=== PATIENT | female | born 1965 | race Two or more races ===

== ENCOUNTER 2017-07-08 17:13 | Emergency (ER) | payer OTHER ==
[~2017-07-08] VITALS: Ht 165.1 cm; Wt 90.7 kg
[~2017-07-08 17:13] MED LIST: FIORICET 50-321 EACH PO
== END 2017-07-08 22:10 | disposition home or self-care (01) ==
LOC: ER 17:13
DX: K57.32 Diverticulitis of large intestine without perforation or abscess without bleeding (principal); R10.32 Left lower quadrant pain

== ENCOUNTER 2017-07-23 16:12 | Emergency (ER) | payer OTHER ==
[~2017-07-23] VITALS: Ht 162.6 cm; Wt 90.7 kg
[2017-07-23] MEDS ORDERED: DICLOFENAC POTA50 MG PO (17:58)
[2017-07-23] MEDS ORDERED: MEDROLPACK PO (17:58)
== END 2017-07-23 21:01 | disposition home or self-care (01) ==
LOC: ER 16:12
DX: M62.838 Other muscle spasm (principal)

== ENCOUNTER 2017-09-20 12:51 | Outpatient (CLI) | payer OTHER ==
[~2017-09-20 12:51] MED LIST changes: +DICLOFENAC POTA50 MG PO; +MEDROLPACK PO
== END 2017-09-20 12:55 | disposition home or self-care (01) ==
LOC: SONOGRAMA 12:51
DX: Z12.31 Encounter for screening mammogram for malignant neoplasm of breast (principal); N65.1 Disproportion of reconstructed breast; N84.0 Polyp of corpus uteri

== ENCOUNTER 2018-02-17 09:14 | Emergency (ER) | payer OTHER ==
[~2018-02-17] VITALS: Ht 162.6 cm; Wt 90.7 kg
== END 2018-02-17 12:48 | disposition home or self-care (01) ==
LOC: ER 09:14
DX: M54.5 Low back pain (principal)

== ENCOUNTER 2019-11-01 10:36 | Emergency (ER) | payer OTHER ==
[~2019-11-01] VITALS: Ht 162.6 cm; Wt 89.4 kg
== END 2019-11-01 15:08 | disposition home or self-care (01) ==
LOC: ER 10:36
DX: R19.5 Other fecal abnormalities (principal)

== ENCOUNTER 2020-01-22 09:59 | Outpatient (CLI) | payer OTHER | END 2020-01-22 10:11 | disposition home or self-care (01) | LOC: RAD 09:59 | PROVIDERS: ATTEND Internal Medicine | DX: M25.512 Pain in left shoulder (principal) ==

== ENCOUNTER 2020-03-24 10:18 | Outpatient (CLI) | payer OTHER | END 2020-03-24 10:25 | disposition home or self-care (01) | LOC: RAD 10:18 | PROVIDERS: ATTEND Orthopaedic Surgery | DX: M25.561 Pain in right knee (principal) ==

== ENCOUNTER → 2020-05-31 08:00 | Outpatient (CLI) | payer OTHER | END | disposition home or self-care (01) | LOC: PPH VACUNA 08:00 | DX: Z23 Encounter for immunization (principal) ==

== ENCOUNTER → 2020-09-24 | Emergency (ER) | payer OTHER ==
[~2020-09-24] VITALS: Ht 162.6 cm; Wt 87.1 kg
== END | disposition left against medical advice (07) ==
LOC: ER 14:27
DX: Z53.21 Procedure and treatment not carried out due to patient leaving prior to being seen by health care provider (principal)

== ENCOUNTER 2020-09-27 11:41 | Outpatient (CLI) | payer OTHER | END 2020-09-27 11:47 | disposition home or self-care (01) | LOC: RAD 11:41 | PROVIDERS: ATTEND Orthopaedic Surgery | DX: M25.562 Pain in left knee (principal) ==

== ENCOUNTER 2021-03-19 10:59 | Emergency (ER) | payer OTHER ==
[~2021-03-19] VITALS: Ht 160 cm; Wt 88.9 kg
== END 2021-03-19 14:30 | disposition home or self-care (01) ==
LOC: ER 10:59
DX: R21 Rash and other nonspecific skin eruption (principal)

== ENCOUNTER 2021-09-07 08:38 | Emergency (ER) | payer OTHER ==
[~2021-09-07] VITALS: Ht 160 cm; Wt 88.9 kg
== END 2021-09-07 11:21 | disposition home or self-care (01) ==
LOC: ER 08:38
DX: M25.512 Pain in left shoulder (principal); M54.2 Cervicalgia

== ENCOUNTER 2021-11-10 08:48 | Outpatient (CLI) | payer OTHER | END 2021-11-10 08:58 | disposition home or self-care (01) | LOC: MAMO-SONO 08:48 | PROVIDERS: ATTEND Obstetrics & Gynecology | DX: N60.01 Solitary cyst of right breast (principal); N60.02 Solitary cyst of left breast; Z12.31 Encounter for screening mammogram for malignant neoplasm of breast; N63 Unspecified lump in breast ==

== ENCOUNTER 2022-08-23 09:02 | Outpatient (CLI) | payer OTHER | END 2022-08-23 09:12 | disposition home or self-care (01) | LOC: RAD 09:02 | PROVIDERS: ATTEND Orthopaedic Surgery | DX: M79.642 Pain in left hand (principal); M25.532 Pain in left wrist ==

== ENCOUNTER 2022-12-13 08:31 | Outpatient (CLI) | payer OTHER | END 2022-12-13 08:41 | disposition home or self-care (01) | LOC: RAD 08:31 | PROVIDERS: ATTEND Orthopaedic Surgery | DX: M25.552 Pain in left hip (principal); M25.562 Pain in left knee ==

== ENCOUNTER 2023-10-02 10:43 | Outpatient (CLI) | payer OTHER | END 2023-10-02 10:44 | disposition home or self-care (01) | LOC: NUCLEAR 10:43 | PROVIDERS: ATTEND Internal Medicine | DX: M81.8 Other osteoporosis without current pathological fracture (principal); M81.0 Age-related osteoporosis without current pathological fracture ==

== ENCOUNTER 2023-10-05 06:00 | Day surgery (SDC) | payer OTHER ==
[2023-10-05] MEDS ORDERED: CLINDAMYCIN PHOSPHATE 150 MG/ML (900mg) ONE (08:24)
[2023-10-05] MEDS ORDERED: GENTAMICIN SULFATE 40 MG/ML VIAL ONE (08:36)
[2023-10-05] MEDS ORDERED: POVIDONE-IODINE SCRUB 118 ML BOTT TOP ONE ×2 (08:36→11:15)
[2023-10-05] MEDS ORDERED: POVIDONE-IODINE 118 ML BOTT TOP ONE ×3 (08:36→11:15)
[2023-10-05] MEDS ORDERED: CEFAZOLIN SODIUM 1,000 MG VIAL ONE (08:36)
[2023-10-05] MEDS ORDERED: LIDOCAINE HCL 1%/EPINEPHRINE 20ML VIAL IJ ONE ×2 (09:52→11:15)
[2023-10-05] MEDS ORDERED: LIDOCAINE HCL 1% 20ML VIAL IJ ONE (10:27)
[2023-10-05] MEDS ORDERED: BUPIVACAINE HCL/MPF 0.5% 30ML VIAL ONE (10:31)
[2023-10-05] MEDS ORDERED: BUPIVACAINE HCL 30 ML VIAL IJ ONE (11:15)
[2023-10-05] MEDS ORDERED: GENTAMICIN SULFATE 40 MG/ML VIAL IR ONE (11:15)
[2023-10-05] MEDS ORDERED: CEFAZOLIN SODIUM 1,000 MG VIAL IV ONE (11:15)
[2023-10-05] MEDS ORDERED: CLINDAMYCIN PHOSPHATE 150 MG/ML (900mg) IV ONE (11:15)
== END 2023-10-05 14:15 | disposition home or self-care (01) ==
LOC: CIR.AMB 06:00
PROVIDERS: ATTEND Surgery
DX: D05.12 Intraductal carcinoma in situ of left breast (principal); N62 Hypertrophy of breast; Z90.12 Acquired absence of left breast and nipple
CPT/HCPCS: 19303; 38525; 19357; L8699

== ENCOUNTER 2023-12-27 17:50 | Emergency (ER) | payer OTHER ==
[~2023-12-27] VITALS: Ht 170.2 cm; Wt 90.7 kg
[2023-12-27] MEDS ORDERED: DEXAMETHASONE SODIUM PHOSPHATE 4 MG/ML VIAL IM STA (18:34)
[2023-12-27] MEDS ORDERED: ORPHENADRINE CITRATE 30 MG/ML AMPUL IM STA (18:35)
[2023-12-27] MEDS ORDERED: NORFLEX100MG PO (21:20)
== END 2023-12-27 21:29 | disposition home or self-care (01) ==
LOC: ER 17:52
DX: M71.551 Other bursitis, not elsewhere classified, right hip (principal)

== ENCOUNTER 2024-04-11 05:40 | Day surgery (SDC) | payer OTHER ==
[2024-04-09 10:07] VITALS: BP 144/85
[~2024-04-11] VITALS: Ht 160 cm; Wt 90.7 kg
[~2024-04-11 05:40] MED LIST changes: +ANASTROZOLE1 MG PO; +NORFLEX100MG PO
[2024-04-11] MEDS ORDERED: EPINEPHRINE HCL/PF 1 MG/ML AMPUL ONE (11:18)
[2024-04-11] MEDS ORDERED: CLINDAMYCIN PHOSPHATE 150 MG/ML (900mg) ONE ×2 (11:18→13:46)
[2024-04-11] MEDS ORDERED: POVIDONE-IODINE 118 ML BOTT TOP ONE (11:19)
[2024-04-11] MEDS ORDERED: CEFAZOLIN SODIUM 1,000 MG VIAL ONE (11:19)
[2024-04-11] MEDS ORDERED: POVIDONE-IODINE SCRUB 118 ML BOTT TOP ONE (11:19)
[2024-04-11] MEDS ORDERED: GENTAMICIN SULFATE 40 MG/ML VIAL ONE (11:19)
[2024-04-11] MEDS ORDERED: NITROGLYCERIN 1 INCH OINT..GM. TD ONE (13:15)
[2024-04-11] MEDS ORDERED: SUGAMMADEX SODIUM 200 MG/2 ML VIAL IV ONE (13:32)
[2024-04-11] MEDS ORDERED: MORPHINE SULFATE 4 MG/ML VIAL IV ONE ×2 (14:00→16:15)
[2024-04-11] MEDS ORDERED: ONDANSETRON HCL 2 MG/ML VIAL IV PRN (14:15)
[2024-04-11] MEDS ORDERED: MORPHINE SULFATE 4 MG/ML VIAL IV PRN (14:15)
== END 2024-04-11 17:25 | disposition home or self-care (01) ==
LOC: CIR.AMB 05:40
PROVIDERS: ATTEND Plastic Surgery
DX: D05.12 Intraductal carcinoma in situ of left breast (principal); N65.1 Disproportion of reconstructed breast; Z90.12 Acquired absence of left breast and nipple

== ENCOUNTER 2024-05-15 18:24 | Emergency (ER) | payer OTHER ==
[~2024-05-15] VITALS: Ht 160 cm; Wt 90.7 kg
[2024-05-15] MEDS ORDERED: DIPHENHYDRAMINE HCL 50 MG/ML VIAL 1ML ONE (19:21)
[2024-05-15] MEDS ORDERED: METHYLPREDNISOLONE SOD SUCC 125 MG VIAL ONE (19:21)
[2024-05-15] MEDS ORDERED: METHYLPREDNISOLONE SOD SUCC 125 MG VIAL IV ONE (19:30)
[2024-05-15] MEDS ORDERED: DIPHENHYDRAMINE HCL 50 MG/ML VIAL 1ML IV ONE (19:30)
[2024-05-15 19:48] LABS: HEMATOCRIT 41.7 % (36.0-45.00); MEAN CELL VOLUME 89.9 fL (80.00-100.00); MEAN CORPUSCULAR HEMOGLOBIN 30.2 pg (27.00-32.0); MEAN CORPUSCULAR HGB CONC 33.6 g/dl (32.0-36.0); PLATELET COUNT 218 K/uL (150-450); RED BLOOD COUNT 4.63 M/uL (4.00-6.00); RED CELL DISTRIBUTION WIDTH 13.4 % (11.5-14.5)
[2024-05-15] MEDS ORDERED: ALLEGRA ALLERG180 MG PO (21:00)
== END 2024-05-15 21:34 | disposition home or self-care (01) ==
LOC: ER 18:25
PROVIDERS: General Practice
DX: R21 Rash and other nonspecific skin eruption (principal); N61.1 Abscess of the breast and nipple

== ENCOUNTER 2024-09-11 11:41 | Outpatient (CLI) | payer OTHER ==
[~2024-09-11 11:41] MED LIST changes: +ALLEGRA ALLERG180 MG PO
== END 2024-09-11 11:50 | disposition home or self-care (01) ==
LOC: MAMO-SONO 11:41
PROVIDERS: ATTEND Obstetrics & Gynecology
DX: Z85.3 Personal history of malignant neoplasm of breast (principal)

== ENCOUNTER 2024-11-05 10:44 | Outpatient (CLI) | payer OTHER | END 2024-11-05 10:50 | disposition home or self-care (01) | LOC: RAD 10:44 | PROVIDERS: ATTEND Internal Medicine | DX: M54.6 Pain in thoracic spine (principal); M25.569 Pain in unspecified knee; M79.642 Pain in left hand ==